=== PATIENT | male | born 1935 | race Caucasian/White ===

== ENCOUNTER 2022-04-13 16:00 | Inpatient (IN) | payer OTHER ==
[~2022-04-13] VITALS: Ht 167.6 cm; Wt 62.1 kg
[2022-04-13] MEDS ORDERED: ACETAMINOPHEN 325 MG TAB PO ONE (17:00)
[2022-04-13 17:04] LABS: Basophils # (auto) 0 10 ^3/uL (0-0.2); Basophils % (auto) 0.2 % (0.0-2.0); Eosinophils # (auto) 0 10 ^3/uL (0-0.8); Eosinophils % (auto) 0.2 % (0.0-7.0); Hematocrit 36.8 % (41.0-53.0); Lymphocytes # (auto) 0.8 10 ^3/uL (0.4-5.4); Lymphocytes % (auto) 14.7 % (10.0-50.0); Mean Corpuscular Hemoglobin 32.6 pg (28.0-32.0); Mean Corpuscular Hgb Conc. 32.7 g/dL (32.0-36.0); Mean Corpuscular Volume 99.8 fL (80.0-100.0); Monocytes # (auto) 0.3 10 ^3/uL (0-1.3); Monocytes % (auto) 5.5 % (0.0-12.0); Neutrophils # (auto) 4.3 10 ^3/uL (1.6-8.6); Neutrophils % (auto) 79.4 % (37.0-80.0); Red Blood Cells 3.69 10^6/uL (4.5-5.90); Red Cell Distribution Width 14.1 % (11.8-14.3); White Blood Cell 5.4 10^3/uL (4.4-10.8)
[2022-04-13 17:27] LABS: Albumin 3.3 g/dL (3.4-5.0); Calcium 8.4 mg/dL (8.5-10.1); Potassium 4.3 mmol/L (3.5-5.1)
[2022-04-13 17:30] LABS: BUN/Creatinine Ratio 20.3
[2022-04-13] MEDS ORDERED: FUROSEMIDE 40 MG/4 ML VIAL IV ONE (17:30)
[2022-04-13 17:33] LABS: Bilirubin, Total 0.8 mg/dL (0.2-1.0); Total Protein 6.6 g/dL (6.4-8.2)
[2022-04-13] MEDS ORDERED: METOPROLOL TARTRATE 1MG/1ML-5ML VIAL IV ONE (18:30)
[2022-04-13 20:50] LABS: Urine Bacteria FEW /hpf (None Seen); Urine Blood Negative /uL (Negative); Urine Specific Gravity 1.007 (1.001-1.035); Urine WBC <1 /hpf (0 - 3)
[2022-04-13] MEDS ORDERED: MORPHINE SULFATE INJ 2 MG/ml SYRG IV PRN (21:15)
[2022-04-13] MEDS ORDERED: ACETAMINOPHEN 325 MG TAB PO PRN (21:15)
[2022-04-13] MEDS ORDERED: ONDANSETRON HCL 4 MG/2 ML VIAL IV PRN (21:15)
[2022-04-13] MEDS ORDERED: DEXTROSE (50%) 50ML SYRG IV PRN (21:15)
[2022-04-13] MEDS ORDERED: NITROGLYCERIN 0.4 MG SL TAB SL PRN (21:15)
[2022-04-13] MEDS ORDERED: ATORVASTATIN 20 MG TAB PO SCH (22:00)
[2022-04-13] MEDS: InsuLIN REG 1unit/0.01ml Soln (100units/ml) SC SCH (22:00)
[2022-04-13] MEDS: ACCU-CHEK COMFORT CURVE STRIP VI SCH (22:26)
[2022-04-14] MEDS ORDERED: FUROSEMIDE 20 MG TAB PO SCH (06:00)
[2022-04-14 06:34] LABS: Basophils # (auto) 0 10 ^3/uL (0-0.2); Basophils % (auto) 0.2 % (0.0-2.0); Eosinophils # (auto) 0.1 10 ^3/uL (0-0.8); Eosinophils % (auto) 1.4 % (0.0-7.0); Hematocrit 36.7 % (41.0-53.0); Hemoglobin 11.9 g/dL (13.5-17.5); Lymphocytes # (auto) 1.4 10 ^3/uL (0.4-5.4); Lymphocytes % (auto) 28.6 % (10.0-50.0); Mean Corpuscular Hemoglobin 32.4 pg (28.0-32.0); Mean Corpuscular Hgb Conc. 32.3 g/dL (32.0-36.0); Mean Corpuscular Volume 100.3 fL (80.0-100.0); Monocytes # (auto) 0.5 10 ^3/uL (0-1.3); Monocytes % (auto) 9.8 % (0.0-12.0); Nucleated Red Blood Cells % 0.1 %; Red Blood Cells 3.66 10^6/uL (4.5-5.90); Red Cell Distribution Width 14.2 % (11.8-14.3)
[2022-04-14] MEDS: InsuLIN REG 1unit/0.01ml Soln (100units/ml) SC SCH ×4 (06:38→22:44)
[2022-04-14] MEDS: ACCU-CHEK COMFORT CURVE STRIP VI SCH ×4 (06:38→22:00)
[2022-04-14 06:40] LABS: Potassium 3.7 mmol/L (3.5-5.1)
[2022-04-14 06:50] LABS: Albumin 3.1 g/dL (3.4-5.0); BUN/Creatinine Ratio 18.8; Bilirubin, Total 0.9 mg/dL (0.2-1.0); Calcium 8.9 mg/dL (8.5-10.1); Total Protein 6.6 g/dL (6.4-8.2)
[2022-04-14] MEDS ORDERED: PANTOPRAZOLE 40 MG TAB PO SCH (10:00)
[2022-04-14] MEDS ORDERED: ENOXAPARIN SOD 40 MG/0.4 ML SYRINGE SC SCH (10:00)
[2022-04-14] MEDS: METOPROLOL SUCCINATE XL 50 MG TAB PO SCH (11:07)
[2022-04-14] MEDS: LISINOPRIL 20 MG TAB PO SCH (11:07)
[2022-04-14] MEDS ORDERED: AMIODARONE HCL 200 MG TAB PO ONE (15:30)
[2022-04-14 18:46] LABS: Cholesterol 89 mg/dL (< 200)
[2022-04-14 18:49] LABS: HDL Cholesterol 50 mg/dL (40-59); LDL Cholesterol 37 mg/dL (< 100); Triglycerides 53 mg/dL (< 150)
[2022-04-14] MEDS: TAMSULOSIN HYDROCHLORIDE 0.4 MG CAP PO SCH (19:05)
[2022-04-14] MEDS: FUROSEMIDE 20 MG/2 ML VIAL IV SCH (19:05)
[2022-04-14] MEDS: ATORVASTATIN 20 MG TAB PO SCH (22:41)
[2022-04-14] MEDS: AMIODARONE HCL 200 MG TAB PO SCH (22:42)
[2022-04-14] MEDS: ENOXAPARIN SOD 60 MG/0.6 ML SYRINGE SC SCH (22:42)
[2022-04-15] MEDS: FUROSEMIDE 20 MG/2 ML VIAL IV SCH ×2 (06:01→18:00)
[2022-04-15] MEDS: InsuLIN REG 1unit/0.01ml Soln (100units/ml) SC SCH ×4 (06:51→22:00)
[2022-04-15] MEDS: ACCU-CHEK COMFORT CURVE STRIP VI SCH ×4 (06:52→22:41)
[2022-04-15] MEDS ORDERED: ADENOSINE 50 MG in GIVE UN-DILUTED 0 ML IV ONE (07:30)
[2022-04-15 07:48] LABS: Potassium 3.9 mmol/L (3.5-5.1)
[2022-04-15 07:54] LABS: BUN/Creatinine Ratio 29.9; Calcium 8.7 mg/dL (8.5-10.1); Magnesium 2.1 mg/dL (1.6-2.6); Phosphorus 4.8 mg/dL (2.5-4.90)
[2022-04-15] MEDS: AMIODARONE HCL 200 MG TAB PO SCH ×2 (10:16→22:00)
[2022-04-15] MEDS: ENOXAPARIN SOD 60 MG/0.6 ML SYRINGE SC SCH ×2 (10:16→22:40)
[2022-04-15] MEDS: METOPROLOL SUCCINATE XL 50 MG TAB PO SCH (10:17)
[2022-04-15] MEDS: LISINOPRIL 20 MG TAB PO SCH (10:17)
[2022-04-15 13:00] VITALS: BP 112/67
[2022-04-15 17:00] VITALS: BP 89/51
[2022-04-15] MEDS: TAMSULOSIN HYDROCHLORIDE 0.4 MG CAP PO SCH (19:02)
[2022-04-15 22:00] VITALS: BP 132/68
[2022-04-15] MEDS: ATORVASTATIN 20 MG TAB PO SCH (22:40)
[2022-04-16 05:00] VITALS: BP 123/65
[2022-04-16] MEDS: InsuLIN REG 1unit/0.01ml Soln (100units/ml) SC SCH ×4 (06:34→21:49)
[2022-04-16] MEDS: ACCU-CHEK COMFORT CURVE STRIP VI SCH ×4 (06:34→21:44)
[2022-04-16] MEDS: FUROSEMIDE 20 MG/2 ML VIAL IV SCH (06:42)
[2022-04-16 09:00] VITALS: BP 110/73
[2022-04-16] MEDS ORDERED: ATROPINE SULF 1 MG/10ml SYR IV PRN ×2 (11:00→12:30)
[2022-04-16] MEDS: ENOXAPARIN SOD 60 MG/0.6 ML SYRINGE SC SCH ×2 (11:36→21:44)
[2022-04-16 13:00] VITALS: BP 116/63
[2022-04-16 17:00] VITALS: BP 105/65
[2022-04-16] MEDS: TAMSULOSIN HYDROCHLORIDE 0.4 MG CAP PO SCH (18:18)
[2022-04-16] MEDS: ATORVASTATIN 20 MG TAB PO SCH (21:44)
[2022-04-16 22:31] VITALS: BP 101/54
[2022-04-17 05:00] VITALS: BP 127/67
[2022-04-17] MEDS: ACCU-CHEK COMFORT CURVE STRIP VI SCH ×4 (05:53→22:33)
[2022-04-17] MEDS: InsuLIN REG 1unit/0.01ml Soln (100units/ml) SC SCH ×4 (05:53→22:00)
[2022-04-17 09:00] VITALS: BP 120/76
[2022-04-17] MEDS: ENOXAPARIN SOD 60 MG/0.6 ML SYRINGE SC SCH ×2 (09:07→22:30)
[2022-04-17 13:00] VITALS: BP 127/75
[2022-04-17 17:00] VITALS: BP 108/55
[2022-04-17] MEDS: TAMSULOSIN HYDROCHLORIDE 0.4 MG CAP PO SCH (17:47)
[2022-04-17 22:09] VITALS: BP 139/70
[2022-04-17] MEDS: ATORVASTATIN 20 MG TAB PO SCH (22:29)
[2022-04-18] VITALS (10 sets, daily range): BP systolic 103–133; BP diastolic 63–99
[2022-04-18] MEDS: InsuLIN REG 1unit/0.01ml Soln (100units/ml) SC SCH ×4 (06:23→22:00)
[2022-04-18] MEDS: ACCU-CHEK COMFORT CURVE STRIP VI SCH ×4 (06:23→21:59)
[2022-04-18 06:48] LABS: INR 1.24 (0.9-1.15); Partial Thromboplastin Time 31.8 sec (24.6-33.4)
[2022-04-18] MEDS: ENOXAPARIN SOD 60 MG/0.6 ML SYRINGE SC SCH ×2 (07:46→21:57)
[2022-04-18] MEDS ORDERED: IOHEXOL 350 MG/ML 100ML IJ ONE (08:49)
[2022-04-18] MEDS ORDERED: LIDOCAINE 2%HCL (LOCAL ANESTH.) INJ 10ml MDV ONE (08:50)
[2022-04-18] MEDS ORDERED: ANGIOMAX 250 MG VIAL IV ONE (08:59)
[2022-04-18] MEDS ORDERED: HEPARIN SODIUM (PORCINE) 5000 UNITS/ML 1ML VIAL ONE (08:59)
[2022-04-18] MEDS ORDERED: VERAPAMIL 2.5MG/ML INJ 2ML VIAL IV ONE (09:00)
[2022-04-18] MEDS ORDERED: MIDAZOLAM HCL 2MG/2ML 2ml VIAL (1mg/ml) ONE (09:00)
[2022-04-18] MEDS ORDERED: fentaNYL CITRATE 100 MCG/2 ML VL ONE (09:00)
[2022-04-18] MEDS ORDERED: SODIUM CHL 0.9% 0 ML ONE (09:00)
[2022-04-18] MEDS ORDERED: LIDOCAINE 1%HCL (LOCAL ANESTH) 10 ML MDV ONE (09:15)
[2022-04-18] MEDS ORDERED: diphenhdrAMINE HCL 50 MG/1 ML VL ONE (09:22)
[2022-04-18] MEDS ORDERED: MORPHINE SULFATE INJ 2 MG/ml SYRG IV PRN (09:45)
[2022-04-18] MEDS ORDERED: NITROGLYCERIN 0.4 MG SL TAB SL PRN ×2 (09:45)
[2022-04-18] MEDS ORDERED: SODIUM CHLORIDE 0.9% 500 ML IV ONE (14:45)
[2022-04-18] MEDS: TAMSULOSIN HYDROCHLORIDE 0.4 MG CAP PO SCH (17:45)
[2022-04-18] MEDS: ATORVASTATIN 20 MG TAB PO SCH (21:55)
[2022-04-19] VITALS (11 sets, daily range): BP systolic 126–144; BP diastolic 76–99
[2022-04-19] MEDS: InsuLIN REG 1unit/0.01ml Soln (100units/ml) SC SCH ×4 (06:09→22:02)
[2022-04-19] MEDS: ACCU-CHEK COMFORT CURVE STRIP VI SCH ×4 (06:12→22:03)
[2022-04-19 06:50] LABS: Basophils # (auto) 0 10 ^3/uL (0-0.2); Basophils % (auto) 0.5 % (0.0-2.0); Eosinophils # (auto) 0 10 ^3/uL (0-0.8); Eosinophils % (auto) 0.6 % (0.0-7.0); Hemoglobin 12.2 g/dL (13.5-17.5); Lymphocytes # (auto) 1.9 10 ^3/uL (0.4-5.4); Mean Corpuscular Hemoglobin 32.1 pg (28.0-32.0); Mean Corpuscular Hgb Conc. 32.2 g/dL (32.0-36.0); Mean Corpuscular Volume 99.8 fL (80.0-100.0); Monocytes # (auto) 0.4 10 ^3/uL (0-1.3); Monocytes % (auto) 7.3 % (0.0-12.0); Neutrophils # (auto) 3.6 10 ^3/uL (1.6-8.6); Neutrophils % (auto) 60.6 % (37.0-80.0); Nucleated Red Blood Cells % 0.2 %; Red Blood Cells 3.81 10^6/uL (4.5-5.90); Red Cell Distribution Width 14.2 % (11.8-14.3)
[2022-04-19] MEDS: ENOXAPARIN SOD 60 MG/0.6 ML SYRINGE SC SCH ×2 (07:04→22:00)
[2022-04-19 07:05] LABS: INR 1.24 (0.9-1.15); Partial Thromboplastin Time 32.5 sec (24.6-33.4)
[2022-04-19 07:06] LABS: BUN/Creatinine Ratio 29.4; Potassium 4.3 mmol/L (3.5-5.1)
[2022-04-19] MEDS ORDERED: IODIXANOL 320MG/ML 100ML BTL IV ONE (12:55)
[2022-04-19] MEDS ORDERED: ANGIOMAX 250 MG VIAL IV ONE ×2 (13:18→15:06)
[2022-04-19] MEDS ORDERED: ATROPINE SULF 1 MG/10ml SYR ONE (13:18)
[2022-04-19] MEDS ORDERED: MIDAZOLAM HCL 2MG/2ML 2ml VIAL (1mg/ml) ONE (13:19)
[2022-04-19] MEDS ORDERED: fentaNYL CITRATE 100 MCG/2 ML VL ONE (13:19)
[2022-04-19] MEDS ORDERED: EPINEPHrine HCL 1 MG/10 ML SYRG ONE (13:19)
[2022-04-19] MEDS ORDERED: SODIUM CHL 0.9% 50 ML ONE ×2 (13:19→15:06)
[2022-04-19] MEDS ORDERED: LIDOCAINE 2%HCL (LOCAL ANESTH.) INJ 10ml MDV ONE (13:20)
[2022-04-19] MEDS ORDERED: diphenhdrAMINE HCL 50 MG/1 ML VL ONE (13:57)
[2022-04-19] MEDS ORDERED: CLOPIDOGREL 300 MG TAB ONE (15:46)
[2022-04-19] MEDS ORDERED: METOPROLOL TARTRATE 1MG/1ML-5ML VIAL IV ONE (15:47)
[2022-04-19] MEDS ORDERED: ASPirin 325 MG TAB ONE (15:47)
[2022-04-19] MEDS: TAMSULOSIN HYDROCHLORIDE 0.4 MG CAP PO SCH (18:57)
[2022-04-19] MEDS: ATORVASTATIN 20 MG TAB PO SCH (21:55)
[2022-04-20 05:00] VITALS: BP 123/83
[2022-04-20] MEDS: InsuLIN REG 1unit/0.01ml Soln (100units/ml) SC SCH ×4 (06:11→21:14)
[2022-04-20] MEDS: ACCU-CHEK COMFORT CURVE STRIP VI SCH ×4 (06:12→20:58)
[2022-04-20 06:59] LABS: BUN/Creatinine Ratio 26.5; Calcium 8.8 mg/dL (8.5-10.1); Potassium 4.6 mmol/L (3.5-5.1)
[2022-04-20 09:28] VITALS: BP 131/93
[2022-04-20] MEDS: CLOPIDOGREL BISULFATE 75 MG TAB PO SCH (09:36)
[2022-04-20] MEDS: ASPirin 81 mg TAB PO SCH (09:36)
[2022-04-20] MEDS: ENOXAPARIN SOD 60 MG/0.6 ML SYRINGE SC SCH (09:37)
[2022-04-20 17:03] VITALS: BP 128/78
[2022-04-20] MEDS: TAMSULOSIN HYDROCHLORIDE 0.4 MG CAP PO SCH (17:11)
[2022-04-20] MEDS: ATORVASTATIN 20 MG TAB PO SCH (20:58)
[2022-04-20 22:00] VITALS: BP 117/70
[2022-04-21 05:11] VITALS: BP 126/76
[2022-04-21] MEDS: ACCU-CHEK COMFORT CURVE STRIP VI SCH ×2 (06:25→11:01)
[2022-04-21] MEDS: InsuLIN REG 1unit/0.01ml Soln (100units/ml) SC SCH ×2 (06:25→10:57)
[2022-04-21 07:06] LABS: BUN/Creatinine Ratio 17.7; Basophils # (auto) 0 10 ^3/uL (0-0.2); Basophils % (auto) 0.3 % (0.0-2.0); Calcium 8.4 mg/dL (8.5-10.1); Eosinophils # (auto) 0 10 ^3/uL (0-0.8); Eosinophils % (auto) 0.5 % (0.0-7.0); Hemoglobin 12.4 g/dL (13.5-17.5); Lymphocytes % (auto) 25.7 % (10.0-50.0); Mean Corpuscular Hemoglobin 33.2 pg (28.0-32.0); Mean Corpuscular Hgb Conc. 33.6 g/dL (32.0-36.0); Mean Corpuscular Volume 98.9 fL (80.0-100.0); Monocytes # (auto) 0.7 10 ^3/uL (0-1.3); Monocytes % (auto) 9.1 % (0.0-12.0); Neutrophils % (auto) 64.4 % (37.0-80.0); Nucleated Red Blood Cells % 0.1 %; Potassium 4.4 mmol/L (3.5-5.1); Red Blood Cells 3.74 10^6/uL (4.5-5.90); White Blood Cell 7.8 10^3/uL (4.4-10.8)
[2022-04-21 09:00] VITALS: BP 124/67
[2022-04-21] MEDS: CLOPIDOGREL BISULFATE 75 MG TAB PO SCH (10:48)
[2022-04-21] MEDS: ASPirin 81 mg TAB PO SCH (10:50)
[2022-04-21] MEDS ORDERED: ATOR20TA50 PO (12:29)
[2022-04-21] MEDS ORDERED: CLOP75TA70 PO (12:29)
[2022-04-21] MEDS ORDERED: ASPI-325 PO (12:29)
[2022-04-21] MEDS ORDERED: CAR3125T OR (12:29)
[2022-04-21 13:00] VITALS: BP 135/66
[2022-04-21 13:58] VITALS: BP 135/66
[2022-04-21] MEDS ORDERED: AMIO200T33 PO (14:01)
[2022-04-21 16:53] VITALS: BP 129/79
== END 2022-04-21 16:30 | disposition home or self-care (01) | DRG 216 ==
LOC: ER 16:00 → EDBD 16:00 → TELE 21:21 → TELE-WESTW 04-15 11:14
PROVIDERS: ADMIT Internal Medicine; ATTEND Internal Medicine
PROC: 4A023N7 Measurement of Cardiac Sampling and Pressure, Left Heart, Percutaneous Approach (ICD-10-PCS; 2022-04-18)
PROC: B211YZZ Fluoroscopy of Multiple Coronary Arteries using Other Contrast (ICD-10-PCS; 2022-04-18)
PROC: 02HA3RJ Insertion of Short-term External Heart Assist System into Heart, Intraoperative, Percutaneous Approach (ICD-10-PCS; principal; 2022-04-19)
PROC: 02C Heart and Great Vessels, Extirpation (ICD-10-PCS; 2022-04-19)
PROC: 5A0221D Assistance with Cardiac Output using Impeller Pump, Continuous (ICD-10-PCS; 2022-04-19)
PROC: 027237Z Dilation of Coronary Artery, Three Arteries with Four or More Drug-eluting Intraluminal Devices, Percutaneous Approach (ICD-10-PCS; 2022-04-19)
DX: I25.10 Atherosclerotic heart disease of native coronary artery without angina pectoris (principal); I50.21 Acute systolic (congestive) heart failure; J96.01 Acute respiratory failure with hypoxia; D68.59 Other primary thrombophilia; J91.8 Pleural effusion in other conditions classified elsewhere; N40.0 Benign prostatic hyperplasia without lower urinary tract symptoms; Z20.822 Contact with and (suspected) exposure to COVID-19; D63.8 Anemia in other chronic diseases classified elsewhere; E11.9 Type 2 diabetes mellitus without complications; E78.5 Hyperlipidemia, unspecified; I11.0 Hypertensive heart disease with heart failure; I44.7 Left bundle-branch block, unspecified; I48.91 Unspecified atrial fibrillation; I25.5 Ischemic cardiomyopathy; R04.0 Epistaxis
CPT/HCPCS: 33990; 36415; 71045; 78452; 80048; 80053; 80061; 81001; 82306; 82962; 83036; 83605; 83735; 83880; 84100; 84443; 84484; 85025; 85610; 85730; 86850; 86900; 86901; 87040; 87426; 87804; 92933; 93005; 93017; 93306; 93458; 93970; 96374; 96375; 99152; 99153; 99291; C1724; C1769; C1874; C1887; G0378; J0153; J1815; J2001; J2250; Q9967

== ENCOUNTER → 2022-08-04 | Outpatient (CLI) | payer OTHER ==
[~2022-08-04] MED LIST: AMIO200T33 PO; ASPI-325 PO; ATOR20TA50 PO; CAR3125T OR; CLOP75TA70 PO
[2022-08-04 14:40] LABS: Basophils # (auto) 0 10 ^3/uL (0-0.2); Basophils % (auto) 0.3 % (0.0-2.0); Eosinophils # (auto) 0 10 ^3/uL (0-0.8); Eosinophils % (auto) 0.7 % (0.0-7.0); Hematocrit 39.4 % (41.0-53.0); Hemoglobin 13.2 g/dL (13.5-17.5); Lymphocytes # (auto) 1.4 10 ^3/uL (0.4-5.4); Lymphocytes % (auto) 26.9 % (10.0-50.0); Mean Corpuscular Hemoglobin 32.4 pg (28.0-32.0); Mean Corpuscular Hgb Conc. 33.5 g/dL (32.0-36.0); Mean Corpuscular Volume 96.6 fL (80.0-100.0); Monocytes # (auto) 0.4 10 ^3/uL (0-1.3); Monocytes % (auto) 6.9 % (0.0-12.0); Neutrophils # (auto) 3.3 10 ^3/uL (1.6-8.6); Neutrophils % (auto) 65.2 % (37.0-80.0); Nucleated Red Blood Cells % 0.1 %; Red Blood Cells 4.08 10^6/uL (4.5-5.90); Red Cell Distribution Width 16.2 % (11.8-14.3); White Blood Cell 5.1 10^3/uL (4.4-10.8)
[2022-08-04 15:17] LABS: Albumin 3.4 g/dL (3.4-5.0); Calcium 8.5 mg/dL (8.5-10.1); Potassium 4.2 mmol/L (3.5-5.1)
[2022-08-04 15:20] LABS: Bilirubin, Total 0.4 mg/dL (0.2-1.0)
== END | disposition home or self-care (01) ==
LOC: LAB 14:27
PROVIDERS: ATTEND Internal Medicine
DX: E11.65 Type 2 diabetes mellitus with hyperglycemia (principal); I25.10 Atherosclerotic heart disease of native coronary artery without angina pectoris; I48.91 Unspecified atrial fibrillation; I50.21 Acute systolic (congestive) heart failure
CPT/HCPCS: 36415; 80053; 83036; 85025

== ENCOUNTER → 2022-08-11 | Outpatient (CLI) | payer OTHER | END | disposition home or self-care (01) | LOC: XYW 12:22 | DX: I08.2 Rheumatic disorders of both aortic and tricuspid valves (principal); I48.91 Unspecified atrial fibrillation; I25.10 Atherosclerotic heart disease of native coronary artery without angina pectoris | CPT/HCPCS: 93306 ==

== ENCOUNTER → 2023-01-31 | Outpatient (CLI) | payer OTHER | END | disposition home or self-care (01) | LOC: XYW 10:23 | PROVIDERS: ATTEND Student in an Organized Health Care Education/Training Program | DX: I08.3 Combined rheumatic disorders of mitral, aortic and tricuspid valves (principal); I48.91 Unspecified atrial fibrillation | CPT/HCPCS: 93306 ==

== ENCOUNTER → 2023-06-05 | Outpatient (CLI) | payer OTHER | END | disposition home or self-care (01) | LOC: XYW 12:17 | PROVIDERS: ATTEND Student in an Organized Health Care Education/Training Program | DX: I08.8 Other rheumatic multiple valve diseases (principal); R06.02 Shortness of breath | CPT/HCPCS: 93306 ==

== ENCOUNTER → 2023-06-16 | Outpatient (CLI) | payer OTHER ==
[~2023-06-16] VITALS: Ht 167.6 cm; Wt 63.5 kg
[2023-06-16] MEDS: ADENOSINE 53 MG in GIVE UN-DILUTED 0 ML IV ONE (12:04)
== END | disposition home or self-care (01) ==
LOC: XYW 09:43
PROVIDERS: ATTEND Student in an Organized Health Care Education/Training Program
DX: R06.02 Shortness of breath (principal); I10 Essential (primary) hypertension; I48.0 Paroxysmal atrial fibrillation; E78.5 Hyperlipidemia, unspecified; F03.90 Unspecified dementia, unspecified severity, without behavioral disturbance, psychotic disturbance, mood disturbance, and anxiety
CPT/HCPCS: 78452; 93017; A9500; J0153